=== PATIENT | female | born 1970 | race Hispanic/Latino ===

== ENCOUNTER 2018-07-10 19:19 | Emergency (ER) | payer BC, OTHER ==
[~2018-07-10] VITALS: Ht 154.9 cm; Wt 89.8 kg
[2018-07-10] MEDS ORDERED: CEFOXITIN SOD 1 GM in WATER STERILE 10ML VIAL 10 ML IV SCH (20:00)
[2018-07-10 20:24] LABS: BASOPHILS % 0.2 % (0.0-1.0); EOSINOPHILS % 0.3 % (0.0-6.0); HEMATOCRIT 41.3 % (34.2-44.1); HEMOGLOBIN 14.1 g/dL (12.0-16.0); LYMPHOCYTES % 50.8 % (18.0-39.1); MEAN CORPUSCULAR HEMOGLOBIN 31.1 pg (28-32); MEAN CORPUSCULAR HGB CONC 34.1 g/dL (31-35); MEAN CORPUSCULAR VOLUME 91.2 fL (81-99); MONOCYTES # (AUTO) 0.3 (0.2-0.8); MONOCYTES % 5.7 % (4.4-11.3); NEUTROPHILS # (AUTO) 2.6 (2.1-6.9); NEUTROPHILS % 42.8 % (38.7-80.0); PLATELET COUNT 199 x10e3/uL (140-360); RED BLOOD COUNT 4.53 x10e6/uL (3.6-5.1)
[2018-07-10 20:41] LABS: ALANINE AMINOTRANSFERASE 23 IU/L (0-55); ALBUMIN 3.9 g/dL (3.5-5.0); ALKALINE PHOSPHATASE 62 IU/L (40-150); AMYLASE 64 U/L (25-125); ANION GAP 16.1 mmol/L (8-16); BLOOD UREA NITROGEN 16 mg/dL (7-26); BUN/CREATININE RATIO 21 (6-25); CALCIUM 9.6 mg/dL (8.4-10.2); CARBON DIOXIDE 22 mmol/L (22-29); CHLORIDE 105 mmol/L (98-107); CREATININE, SERUM 0.78 mg/dL (0.57-1.11); EST GLOMERULAR FILTRATION RATE > 60 ML/MIN (60-); GLUCOSE 168 mg/dL (74-118); LIPASE 37 U/L (8-78); POTASSIUM 4.1 mmol/L (3.5-5.1); SODIUM 139 mmol/L (136-145)
[2018-07-10] MEDS ORDERED: MORPHINE SULFATE 2 MG/ML SYR IV STA (20:44)
[2018-07-10] MEDS ORDERED: ONDANSETRON HCL INJ 2 MG/ML VIAL IV STA (20:44)
[2018-07-10] MEDS ORDERED: SODIUM CHLORIDE 0.9% 1000ML 1,000 ML IV ONE (20:45)
[2018-07-10] MEDS ORDERED: IOPAMIDOL 370 MG/ML 200 ML INFUS..BTL INJ ONE (21:08)
[2018-07-10] MEDS ORDERED: SODIUM CHLORIDE 0.9% 50ML 50 ML ONE (21:08)
--- NOTE | 2018-07-10 21:48 | Diagnostic Imaging Report ---
EXAM: CT ABDOMEN/PELVIS W DATE: 07/10/2018 8:02 PM INDICATION: Right abdominal pain COMPARISON: None TECHNIQUE: The abdomen and pelvis were scanned using a multidetector helical scanner. Coronal and sagittal reformations were obtained. IV Contrast: 100 ml Isovue 300/370 FINDINGS: LOWER THORAX: No consolidations LIVER/BILIARY: Hepatic steatosis. No masses. No ductal dilatation. GALLBLADDER: Surgically absent SPLEEN: Unremarkable PANCREAS: Unremarkable ADRENALS: No nodules KIDNEYS: No suspicious renal masses. No hydronephrosis. GI TRACT: Postsurgical changes at the GE junction. No evidence of obstruction. Incidental colonic diverticula. Normal appendix. VESSELS: Mild atherosclerotic changes PERITONEUM/RETROPERITONEUM: No free air or fluid LYMPH NODES: No lymphadenopathy REPRODUCTIVE ORGANS/BLADDER: Hysterectomy. Otherwise unremarkable. SOFT TISSUES: Bilateral breast implants, partially imaged. BONES: Sclerotic bubbly lesion of the right proximal femur/greater trochanter. IMPRESSION: 1. No acute abnormality. 2. Hepatic steatosis. 3. 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 Recommend nonemergent follow up dedicated right hip radiographs to better assess. Signed by: Dr Bety Avila MD on 07/10/2018 9:45 PM
[2018-07-10 23:45] LABS: CLARITY,URINE CLEAR (CLEAR); COLOR,URINE YELLOW (YELLOW); LEUKOCYTE ESTERASE ,URINE NEGATIVE (NEGATIVE)
[2018-07-10 23:46] LABS: BACTERIA,URINE MODERATE /HPF; BILIRUBIN,URINE NEGATIVE (NEGATIVE); EPITHELIAL CELLS,URINE FEW /LPF; KETONES,URINE NEGATIVE (NEGATIVE); NITRITE,URINE NEGATIVE (NEGATIVE); PROTEIN,URINE DIPSTICK NEGATIVE (NEGATIVE); URINE UROBILINOGEN 0.2 mg/dL (0.2 - 1); WBC,URINE (MAN) 0-5 /HPF (0-5)
[2018-07-11 00:28] VITALS: BP 148/75
== END 2018-07-11 00:47 | disposition home or self-care (01) ==
LOC: ER 19:19
DX: R10.33 Periumbilical pain (principal); R19.7 Diarrhea, unspecified; I10 Essential (primary) hypertension; E11.9 Type 2 diabetes mellitus without complications; Z85.3 Personal history of malignant neoplasm of breast
CPT/HCPCS: 36415; 74177; 80053; 81001; 82150; 83690; 85025; 99284; J2270; J2405; J7030; Q9967

== ENCOUNTER → 2020-02-24 | Outpatient (CLI) | payer OTHER ==
--- NOTE | 2020-02-24 10:39 | Diagnostic Imaging Report ---
EXAMINATION: CHEST 2 VIEWS INDICATION: Cough COMPARISON: CT abdomen and pelvis 07/10/2018 FINDINGS: LINES/TUBES:None LUNGS:The lungs are well-inflated. No focal consolidation or pulmonary edema. PLEURA:No pleural effusion or pneumothorax. MEDIASTINUM:The cardiomediastinal silhouette appears normal in size and shape. BONES/SOFT TISSUES:No acute osseous injury. Surgical clips in the right breast. ABDOMEN:No free air under the diaphragm. Cholecystectomy. IMPRESSION: No focal pneumonia or pulmonary edema. Signed by: Brice Sellers MD on 02/24/2020 10:36 AM
== END ==
LOC: RAD 08:50
PROVIDERS: ATTEND Family Medicine
DX: R05 Cough (principal)
CPT/HCPCS: 71046

== ENCOUNTER → 2021-05-26 | Outpatient (CLI) | payer BC | LOC: RAD 11:47 | PROVIDERS: ATTEND Family Medicine | DX: R05 Cough (principal) | CPT/HCPCS: 71046 ==

== ENCOUNTER 2022-04-23 18:27 | Observation (INO) | payer SELFPAY ==
[~2022-04-23] VITALS: Ht 162.6 cm; Wt 89.8 kg
[2022-04-23] MEDS ORDERED: SODIUM CHLORIDE 0.9% 1000ML 1,000 ML IV ONE ×2 (18:45→19:30)
[2022-04-23] MEDS ORDERED: ACETAMINOPHEN 325 MG TAB PO ONE (19:15)
[2022-04-23] MEDS ORDERED: ACETAMINOPHEN 325 MG TAB ONE (19:16)
[2022-04-23 19:29] LABS: BASOPHILS % 0.5 % (0.0-1.0); EOSINOPHILS % 0.5 % (0.0-6.0); HEMATOCRIT 43.2 % (34.2-44.1); HEMOGLOBIN 14.8 g/dL (12.0-16.0); LYMPHOCYTES # (AUTO) 2.9 (1.0-3.2); LYMPHOCYTES % 48.3 % (18.0-39.1); MEAN CORPUSCULAR HEMOGLOBIN 31.6 pg (28-32); MEAN CORPUSCULAR HGB CONC 34.3 g/dL (31-35); MEAN CORPUSCULAR VOLUME 92.3 fL (81-99); MONOCYTES # (AUTO) 0.4 (0.2-0.8); MONOCYTES % 6.8 % (4.4-11.3); NEUTROPHILS # (AUTO) 2.6 (2.1-6.9); NEUTROPHILS % 43.7 % (38.7-80.0); PLATELET COUNT 192 x10e3/uL (140-360); RED BLOOD COUNT 4.68 x10e6/uL (3.6-5.1); RED CELL DISTRIBUTION WIDTH 11.4 % (11.7-14.4)
[2022-04-23 19:51] LABS: ALANINE AMINOTRANSFERASE 32 IU/L (0-55); ALBUMIN 3.8 g/dL (3.5-5.0); ALBUMIN/GLOBULIN RATIO 0.8 (0.8-2.0); ALKALINE PHOSPHATASE 105 IU/L (40-150); ANION GAP 22.1 mmol/L (8-16); BLOOD UREA NITROGEN 14 mg/dL (7-26); BUN/CREATININE RATIO 15 (6-25); CALCIUM 9.8 mg/dL (8.4-10.2); CARBON DIOXIDE 18 mmol/L (22-29); CHLORIDE 97 mmol/L (98-107); CREATININE, SERUM 0.93 mg/dL (0.57-1.11); POTASSIUM 4.1 mmol/L (3.5-5.1); SODIUM 133 mmol/L (136-145)
[2022-04-23 20:00] LABS: GLUCOSE 514 mg/dL (74-118)
[2022-04-23 20:10] LABS: CREATINE KINASE 56 IU/L (29-168)
[2022-04-23] MEDS ORDERED: MAGNESIUM SULF 1GRAM/DEXTROSE 100 ML IV PRN (20:30)
[2022-04-23] MEDS ORDERED: DEXTROSE 5%/0.45% SOD CHL 1,000 ML IV SCH (20:30)
[2022-04-23] MEDS ORDERED: POTASSIUM CHLORIDE 20MEQ/100ML 200 ML IV PRN (20:30)
[2022-04-23] MEDS ORDERED: SODIUM CHLORIDE 0.9% 1000ML 1,000 ML IV SCH (20:30)
[2022-04-23] MEDS ORDERED: INSULIN REGULAR, HUMAN 3ML VL 100 UNIT in SODIUM CHLORIDE 0.9% 100 ML IV SCH ×2 (20:30)
[2022-04-23] MEDS ORDERED: INSULIN REGULAR, HUMAN 100 UNIT/1 ML IV ONE (20:37)
[2022-04-23] MEDS ORDERED: INSULIN REGULAR, HUMAN 100 UNIT/1 ML SQ ONE (20:37)
[2022-04-23 21:14] LABS: CLARITY,URINE CLEAR (CLEAR); COLOR,URINE YELLOW (YELLOW); KETONES,URINE NEGATIVE (NEGATIVE); LEUKOCYTE ESTERASE ,URINE NEGATIVE (NEGATIVE); NITRITE,URINE NEGATIVE (NEGATIVE); PROTEIN,URINE DIPSTICK NEGATIVE (NEGATIVE); URINE UROBILINOGEN 0.2 mg/dL (0.2 - 1)
[2022-04-23 21:22] LABS: EPITHELIAL CELLS,URINE FEW /LPF; RBC,URINE 0-5 /HPF (0-5); WBC,URINE (MAN) 0-5 /HPF (0-5)
[2022-04-23 21:23] LABS: BACTERIA,URINE FEW /HPF
[2022-04-23] MEDS ORDERED: ONDANSETRON HCL INJ 2MG/ML 2ML 2 MG/ML VIAL ONE (21:42)
[2022-04-23 21:47] LABS: ANION GAP 14.8 mmol/L (8-16); CREATININE, SERUM 0.69 mg/dL (0.57-1.11); POTASSIUM 3.8 mmol/L (3.5-5.1)
[2022-04-23] MEDS ORDERED: DEXTROSE 50% SYRINGE 50 ML IV PRN (22:30)
[2022-04-23] MEDS ORDERED: ACETAMINOPHEN 325 MG TAB PO PRN (22:30)
[2022-04-23] MEDS ORDERED: ONDANSETRON HCL INJ 2MG/ML 2ML 2 MG/ML VIAL IV PRN (22:30)
[2022-04-23] MEDS: SODIUM CHLORIDE 0.9% 1000ML 1,000 ML IV SCH (22:34)
[2022-04-23 23:07] VITALS: BP 151/98
[2022-04-23] MEDS ORDERED: LISINOPRIL20 MG PO (23:36)
[2022-04-23] MEDS ORDERED: HUMALOG100 UNIT/1 SQ (23:36)
[2022-04-23] MEDS ORDERED: LANTUS 3ML100 UNITS/ SQ (23:38)
[2022-04-23] MEDS ORDERED: TRAZODONE HCL100 MG PO (23:38)
[2022-04-23 23:45] VITALS: BP 151/98
[2022-04-24] MEDS ORDERED: TRAZODONE HCL 50 MG TAB PO ONE
[2022-04-24 05:57] LABS: BASOPHILS % 0.4 % (0.0-1.0); EOSINOPHILS # (AUTO) 0.1 (0.0-0.4); EOSINOPHILS % 1.1 % (0.0-6.0); HEMATOCRIT 37.1 % (34.2-44.1); HEMOGLOBIN 12.4 g/dL (12.0-16.0); LYMPHOCYTES # (AUTO) 2.7 (1.0-3.2); LYMPHOCYTES % 59.4 % (18.0-39.1); MEAN CORPUSCULAR HEMOGLOBIN 31.2 pg (28-32); MEAN CORPUSCULAR HGB CONC 33.4 g/dL (31-35); MEAN CORPUSCULAR VOLUME 93.5 fL (81-99); MONOCYTES # (AUTO) 0.4 (0.2-0.8); NEUTROPHILS # (AUTO) 1.4 (2.1-6.9); NEUTROPHILS % 29.9 % (38.7-80.0); PLATELET COUNT 226 x10e3/uL (140-360); RED BLOOD COUNT 3.97 x10e6/uL (3.6-5.1); RED CELL DISTRIBUTION WIDTH 11.5 % (11.7-14.4)
[2022-04-24 06:28] LABS: ALBUMIN 3.3 g/dL (3.5-5.0); ALBUMIN/GLOBULIN RATIO 1.1 (0.8-2.0); ANION GAP 13.7 mmol/L (8-16); CALCIUM 8.3 mg/dL (8.4-10.2); CREATININE, SERUM 0.68 mg/dL (0.57-1.11); POTASSIUM 3.7 mmol/L (3.5-5.1)
[2022-04-24 07:04] LABS: CHOL/HDL RATIO 6.2 (3.0-3.6)
[2022-04-24 08:07] VITALS: BP 146/76
[2022-04-24 08:10] VITALS: BP 146/76
[2022-04-24] MEDS ORDERED: LISINOPRIL 20 MG TAB PO SCH (09:00)
[2022-04-24] MEDS: INSULIN REGULAR, HUMAN 100 UNIT/1 ML SQ SCH ×3 (09:25→16:16)
[2022-04-24] MEDS: SODIUM CHLORIDE 0.9% 1000ML 1,000 ML IV SCH ×2 (09:29→14:55)
[2022-04-24 11:55] VITALS: BP 137/78
[2022-04-24 16:14] VITALS: BP 134/74
[2022-04-24] MEDS ORDERED: ONDANSETRON ODT4 MG PO (19:05)
[2022-04-24] MEDS ORDERED: CEPHALEXIN500 MG PO (19:05)
[2022-04-24] MEDS ORDERED: ONDANSETRON HCL 4 MG ORAL DISINTEGRATING TAB PO PRN (19:30)
[2022-04-24] MEDS ORDERED: TRAZODONE HCL 50 MG TAB PO SCH (21:00)
== END 2022-04-24 21:10 | disposition home or self-care (01) ==
LOC: ER 18:39 → ERHOLD 22:18 → MED/SURG2 23:09
PROVIDERS: ADMIT Internal Medicine; ATTEND Internal Medicine
DX: E86.0 Dehydration (principal); I10 Essential (primary) hypertension; E87.2 Acidosis; E11.65 Type 2 diabetes mellitus with hyperglycemia; E87.8 Other disorders of electrolyte and fluid balance, not elsewhere classified; E66.9 Obesity, unspecified; Z68.37 Body mass index [BMI] 37.0-37.9, adult; Z85.3 Personal history of malignant neoplasm of breast; Z20.822 Contact with and (suspected) exposure to COVID-19; Z79.4 Long term (current) use of insulin
CPT/HCPCS: 36415 ×2; 71045; 80048; 80053 ×2; 80061; 81001; 82550; 82553; 82948 ×2; 83036; 83605; 83690; 83735; 84484; 85025 ×2; 87040; 93005; 94799; 99284; G0378 ×2; J0696 ×2; J1817; J2405; J7030 ×2; U0002

== ENCOUNTER 2022-08-05 02:21 | Emergency (ER) | payer BC ==
[~2022-08-05] VITALS: Ht 162.6 cm; Wt 86.2 kg
[~2022-08-05 02:21] MED LIST: CEPHALEXIN500 MG PO; HUMALOG100 UNIT/1 SQ; LANTUS 3ML100 UNITS/ SQ; LISINOPRIL20 MG PO; ONDANSETRON ODT4 MG PO; TRAZODONE HCL100 MG PO
[2022-08-05] MEDS ORDERED: SODIUM CHLORIDE 0.9% 1000ML 1,000 ML IV STA (02:47)
[2022-08-05] MEDS ORDERED: ONDANSETRON HCL INJ 2MG/ML 2ML 2 MG/ML VIAL IV STA ×2 (02:47→03:39)
[2022-08-05] MEDS ORDERED: FAMOTIDINE 20 MG/2 ML VIAL IV STA (02:47)
[2022-08-05 03:05] LABS: BASOPHILS % 0.6 % (0.0-1.0); EOSINOPHILS % 0.8 % (0.0-6.0); HEMATOCRIT 42.6 % (34.2-44.1); HEMOGLOBIN 14.2 g/dL (12.0-16.0); LYMPHOCYTES # (AUTO) 2.6 (1.0-3.2); LYMPHOCYTES % 54.9 % (18.0-39.1); MEAN CORPUSCULAR HEMOGLOBIN 30.7 pg (28-32); MEAN CORPUSCULAR HGB CONC 33.3 g/dL (31-35); MEAN CORPUSCULAR VOLUME 92.2 fL (81-99); MONOCYTES # (AUTO) 0.4 (0.2-0.8); MONOCYTES % 7.3 % (4.4-11.3); NEUTROPHILS # (AUTO) 1.7 (2.1-6.9); NEUTROPHILS % 36.2 % (38.7-80.0); PLATELET COUNT 243 x10e3/uL (140-360); RED BLOOD COUNT 4.62 x10e6/uL (3.6-5.1); RED CELL DISTRIBUTION WIDTH 11.2 % (11.7-14.4)
[2022-08-05 03:15] LABS: CLARITY,URINE CLEAR (CLEAR); COLOR,URINE YELLOW (YELLOW); KETONES,URINE NEGATIVE (NEGATIVE); LEUKOCYTE ESTERASE ,URINE NEGATIVE (NEGATIVE); NITRITE,URINE NEGATIVE (NEGATIVE); PROTEIN,URINE DIPSTICK NEGATIVE (NEGATIVE); URINE UROBILINOGEN 0.2 mg/dL (0.2 - 1)
[2022-08-05 03:22] LABS: ALBUMIN/GLOBULIN RATIO 1.1 (0.8-2.0); ANION GAP 21.1 mmol/L (8-16); CALCIUM 8.8 mg/dL (8.4-10.2); CREATINE KINASE 71 IU/L (29-168); CREATININE, SERUM 0.79 mg/dL (0.57-1.11); POTASSIUM 4.1 mmol/L (3.5-5.1)
[2022-08-05 03:25] LABS: BACTERIA,URINE MANY /HPF; EPITHELIAL CELLS,URINE MODERATE /LPF; RBC,URINE 0-5 /HPF (0-5); WBC,URINE (MAN) 0-5 /HPF (0-5)
[2022-08-05] MEDS ORDERED: Morphine 4mg INJECTION 4 MG/ML INJ IV STA (03:39)
[2022-08-05] MEDS ORDERED: INSULIN REGULAR, HUMAN 100 UNIT/1 ML IV STA (03:39)
[2022-08-05] MEDS ORDERED: INSULIN REGULAR, HUMAN 100 UNIT/1 ML IV ONE (04:00)
[2022-08-05 04:01] LABS: ABG HCO3 21 mmol/L (22-26); ABG PCO2 38 mmHg (35-45); ABG PH 7.36 (7.35-7.45); ABG PO2 128 mmHg (80-105); ABG TCO2 22
[2022-08-05 04:56] VITALS: BP 140/72
[2022-08-05] MEDS ORDERED: IOPAMIDOL 370 MG/ML 100 ML INFUS..BTL INJ ONE (05:43)
== END 2022-08-05 05:01 | disposition home or self-care (01) ==
LOC: ER 02:28
DX: R10.13 Epigastric pain (principal); R11.2 Nausea with vomiting, unspecified; E11.65 Type 2 diabetes mellitus with hyperglycemia; I10 Essential (primary) hypertension; R94.31 Abnormal electrocardiogram [ECG] [EKG]; Z85.3 Personal history of malignant neoplasm of breast; Z85.43 Personal history of malignant neoplasm of ovary
CPT/HCPCS: 36415; 36600; 74177; 80053; 81001; 82550; 82553; 82805; 82948; 83690; 84484; 85025; 93005; 99284; J1817; J2270; J2405; J7030; Q9967

== ENCOUNTER 2022-09-05 11:45 | Observation (INO) | payer BC ==
[~2022-09-05] VITALS: Ht 162.6 cm; Wt 86.0 kg
[2022-09-05] MEDS ORDERED: SODIUM CHLORIDE FLUSH 10 ML SYR IV PRN (12:00)
[2022-09-05] MEDS ORDERED: ASPIRIN 81 MG CHEW TAB PO ONE ×2 (12:00→13:45)
[2022-09-05 12:12] LABS: BASOPHILS % 0.7 % (0.0-1.0); EOSINOPHILS % 0.7 % (0.0-6.0); HEMATOCRIT 45.7 % (34.2-44.1); HEMOGLOBIN 14.7 g/dL (12.0-16.0); LYMPHOCYTES # (AUTO) 1.7 (1.0-3.2); LYMPHOCYTES % 39.3 % (18.0-39.1); MEAN CORPUSCULAR HEMOGLOBIN 30.4 pg (28-32); MEAN CORPUSCULAR HGB CONC 32.2 g/dL (31-35); MEAN CORPUSCULAR VOLUME 94.4 fL (81-99); MONOCYTES # (AUTO) 0.2 (0.2-0.8); NEUTROPHILS # (AUTO) 2.4 (2.1-6.9); NEUTROPHILS % 54.1 % (38.7-80.0); PLATELET COUNT 263 x10e3/uL (140-360); RED BLOOD COUNT 4.84 x10e6/uL (3.6-5.1); RED CELL DISTRIBUTION WIDTH 11.5 % (11.7-14.4)
[2022-09-05 13:17] LABS: ALANINE AMINOTRANSFERASE 31 IU/L (0-55); ALBUMIN 4.3 g/dL (3.5-5.0); ALKALINE PHOSPHATASE 102 IU/L (40-150); ANION GAP 19.7 mmol/L (8-16); BLOOD UREA NITROGEN 12 mg/dL (7-26); BUN/CREATININE RATIO 15 (6-25); CALCIUM 9.4 mg/dL (8.4-10.2); CARBON DIOXIDE 21 mmol/L (22-29); CHLORIDE 103 mmol/L (98-107); CREATININE, SERUM 0.82 mg/dL (0.57-1.11); POTASSIUM 3.7 mmol/L (3.5-5.1); SODIUM 140 mmol/L (136-145)
[2022-09-05 13:23] LABS: GLUCOSE 406 mg/dL (74-118)
[2022-09-05] MEDS ORDERED: INSULIN REGULAR, HUMAN 100 UNIT/1 ML IV ONE (13:30)
[2022-09-05] MEDS ORDERED: SODIUM CHLORIDE 0.9% 1000ML 1,000 ML IV ONE (13:30)
[2022-09-05] MEDS ORDERED: ACETAMINOPHEN 325 MG TAB PO ONE (13:45)
[2022-09-05] MEDS ORDERED: SODIUM CHLORIDE FLUSH 10 ML SYR INJ PRN (13:45)
[2022-09-05 14:38] LABS: CREATINE KINASE 86 IU/L (29-168)
[2022-09-05] MEDS ORDERED: ACETAMINOPHEN 325 MG TAB PO PRN (14:45)
[2022-09-05 15:00] VITALS: BP 170/96
[2022-09-05] MEDS ORDERED: CLONIDINE HCL 0.1 MG TAB PO PRN (15:00)
[2022-09-05 16:21] VITALS: BP 170/96
[2022-09-05] MEDS: INSULIN GLARGINE 100 UNITS/ML VIAL SQ SCH (16:31)
[2022-09-05] MEDS: INSULIN LISPRO 100 UNIT/1 ML 3ML VIAL SQ SCH ×2 (16:31→22:05)
[2022-09-05] MEDS: ACETAMINOPHEN/CODEINE 300MG - 30MG TAB PO PRN ×2 (16:42→21:36)
[2022-09-05] MEDS ORDERED: CARVEDILOL 3.125 MG TAB PO SCH (17:00)
[2022-09-05] MEDS: ONDANSETRON HCL INJ 2MG/ML 2ML 2 MG/ML VIAL IV PRN ×2 (18:26→22:40)
[2022-09-05] MEDS: Morphine 2mg Syringe 2 MG/ML SYR IV PRN ×2 (18:26→22:40)
[2022-09-05 20:00] VITALS: BP 166/96
[2022-09-05] MEDS ORDERED: IOPAMIDOL 370 MG/ML 100 ML INFUS..BTL INJ ONE (20:34)
[2022-09-05 21:00] VITALS: BP 166/96
[2022-09-05] MEDS ORDERED: TRAZODONE HCL 50 MG TAB PO PRN (21:15)
[2022-09-06] VITALS: BP 123/71
[2022-09-06] MEDS: ONDANSETRON HCL INJ 2MG/ML 2ML 2 MG/ML VIAL IV PRN ×2 (03:44→08:12)
[2022-09-06] MEDS: Morphine 2mg Syringe 2 MG/ML SYR IV PRN ×2 (03:45→08:12)
[2022-09-06 04:00] VITALS: BP 100/62
[2022-09-06 06:01] LABS: BASOPHILS % 0.5 % (0.0-1.0); EOSINOPHILS # (AUTO) 0.1 (0.0-0.4); EOSINOPHILS % 1.9 % (0.0-6.0); HEMATOCRIT 37.1 % (34.2-44.1); HEMOGLOBIN 12.1 g/dL (12.0-16.0); LYMPHOCYTES # (AUTO) 2.4 (1.0-3.2); LYMPHOCYTES % 56.4 % (18.0-39.1); MEAN CORPUSCULAR HEMOGLOBIN 30.7 pg (28-32); MEAN CORPUSCULAR HGB CONC 32.6 g/dL (31-35); MEAN CORPUSCULAR VOLUME 94.2 fL (81-99); MONOCYTES # (AUTO) 0.3 (0.2-0.8); MONOCYTES % 7.1 % (4.4-11.3); NEUTROPHILS # (AUTO) 1.4 (2.1-6.9); NEUTROPHILS % 33.9 % (38.7-80.0); PLATELET COUNT 215 x10e3/uL (140-360); RED BLOOD COUNT 3.94 x10e6/uL (3.6-5.1); RED CELL DISTRIBUTION WIDTH 11.5 % (11.7-14.4)
[2022-09-06 06:23] LABS: ANION GAP 13.5 mmol/L (8-16); CALCIUM 8.1 mg/dL (8.4-10.2); CHOL/HDL RATIO 5.3 (3.0-3.6); CREATININE, SERUM 0.62 mg/dL (0.57-1.11); POTASSIUM 3.5 mmol/L (3.5-5.1)
[2022-09-06 06:41] LABS: CREATINE KINASE 56 IU/L (29-168)
[2022-09-06 08:00] VITALS: BP 114/79
[2022-09-06] MEDS: CARVEDILOL 3.125 MG TAB PO SCH ×2 (08:14→16:22)
[2022-09-06 08:20] VITALS: BP 114/79
[2022-09-06] MEDS: INSULIN LISPRO 100 UNIT/1 ML 3ML VIAL SQ SCH ×3 (08:47→16:29)
[2022-09-06] MEDS: INSULIN GLARGINE 100 UNITS/ML VIAL SQ SCH (08:48)
[2022-09-06] MEDS ORDERED: ASPIRIN 325 MG TAB EC PO SCH (09:00)
[2022-09-06] MEDS ORDERED: LISINOPRIL 20 MG TAB PO SCH (09:00)
[2022-09-06] MEDS ORDERED: COREG3.125 MG PO (10:25)
[2022-09-06] MEDS ORDERED: ACETAMIN/BUTALBITAL/CAFFEINE TAB PO ONE (11:00)
[2022-09-06 11:52] VITALS: BP 109/59
[2022-09-06 15:07] LABS: CREATINE KINASE 62 IU/L (29-168)
[2022-09-06 16:11] VITALS: BP 149/71
== END 2022-09-06 19:05 | disposition home or self-care (01) ==
LOC: ER 11:47 → ERHOLD 13:39 → MED/SURG2 14:48
PROVIDERS: ADMIT Internal Medicine; ATTEND Internal Medicine
DX: R07.89 Other chest pain (principal); R55 Syncope and collapse; E11.65 Type 2 diabetes mellitus with hyperglycemia; I10 Essential (primary) hypertension; E66.09 Other obesity due to excess calories; Z68.32 Body mass index [BMI] 32.0-32.9, adult
CPT/HCPCS: 36415 ×2; 70450; 71045; 71260; 72125; 73502; 80048; 80053; 80061; 82550 ×2; 82553 ×2; 82948 ×2; 83036; 84484 ×2; 85025 ×2; 85379; 93005 ×2; 99284; G0378 ×2; J1815; J1817; J2270 ×2; J2405 ×2; J7030; Q9967; U0002

== ENCOUNTER 2023-05-20 14:58 | Emergency (ER) | payer BC ==
[~2023-05-20] VITALS: Ht 162.6 cm; Wt 85.7 kg
[~2023-05-20 14:58] MED LIST changes: +AZITHROMYCIN250 MG PO; +COREG3.125 MG PO; +DICYCLOMINE HCL20 MG PO
[2023-05-20] MEDS ORDERED: Morphine 4mg INJECTION 4 MG/ML INJ IV PRN (15:30)
[2023-05-20] MEDS ORDERED: ONDANSETRON HCL INJ 2MG/ML 2ML 2 MG/ML VIAL IV PRN (15:30)
[2023-05-20 15:49] LABS: BASOPHILS % 0.5 % (0.0-1.0); EOSINOPHILS % 0.5 % (0.0-6.0); HEMATOCRIT 39.1 % (34.2-44.1); HEMOGLOBIN 13.3 g/dL (12.0-16.0); LYMPHOCYTES # (AUTO) 2.7 (1.0-3.2); LYMPHOCYTES % 42.8 % (18.0-39.1); MEAN CORPUSCULAR HEMOGLOBIN 30.6 pg (28-32); MEAN CORPUSCULAR VOLUME 90.1 fL (81-99); MONOCYTES # (AUTO) 0.3 (0.2-0.8); MONOCYTES % 4.3 % (4.4-11.3); NEUTROPHILS # (AUTO) 3.2 (2.1-6.9); NEUTROPHILS % 51.7 % (38.7-80.0); PLATELET COUNT 255 x10e3/uL (140-360); RED BLOOD COUNT 4.34 x10e6/uL (3.6-5.1); RED CELL DISTRIBUTION WIDTH 11.5 % (11.7-14.4)
[2023-05-20 16:03] LABS: ANION GAP 12.6 mmol/L (8-16); CREATININE, SERUM 0.76 mg/dL (0.57-1.11); POTASSIUM 3.6 mmol/L (3.5-5.1)
[2023-05-20 16:04] LABS: ALBUMIN 3.7 g/dL (3.5-5.0); CALCIUM 9.2 mg/dL (8.4-10.2)
[2023-05-20 16:07] LABS: CLARITY,URINE SL CLOUDY (CLEAR); COLOR,URINE YELLOW (YELLOW); LEUKOCYTE ESTERASE ,URINE NEGATIVE (NEGATIVE); NITRITE,URINE NEGATIVE (NEGATIVE)
[2023-05-20 16:08] LABS: KETONES,URINE NEGATIVE (NEGATIVE); PROTEIN,URINE DIPSTICK NEGATIVE (NEGATIVE); URINE UROBILINOGEN 0.2 mg/dL (0.2 - 1)
[2023-05-20 16:14] LABS: LIPASE 36 U/L (8-78)
[2023-05-20 16:19] LABS: BACTERIA,URINE MODERATE /HPF; EPITHELIAL CELLS,URINE MODERATE /LPF; RBC,URINE 0-5 /HPF (0-5); WBC,URINE (MAN) 0-5 /HPF (0-5)
[2023-05-20] MEDS ORDERED: FENTANYL CITRATE/PF 100MCG/2 ML INJ IV ONE (17:00)
[2023-05-20] MEDS ORDERED: IOPAMIDOL 370 MG/ML 100 ML INFUS..BTL INJ ONE (17:02)
[2023-05-20] MEDS ORDERED: PEPCID20 MG PO (17:53)
[2023-05-20] MEDS ORDERED: CARAFATE1 GM/10 ML PO ×2 (17:53→18:19)
[2023-05-20] MEDS ORDERED: ONDANSETRON ODT4 MG PO (17:53)
[2023-05-20] MEDS ORDERED: DICYCLOMINE HCL20 MG PO (17:53)
[2023-05-20] MEDS ORDERED: DONNATAL/LIDOCAINE/MAALOX 30 ML SUSP PO ONE (18:00)
[2023-05-20] MEDS ORDERED: FAMOTIDINE 20 MG TAB PO ONE (18:00)
[2023-05-20] MEDS ORDERED: ONDANSETRON HCL INJ 2MG/ML 2ML 2 MG/ML VIAL IV STA (18:37)
[2023-05-20 19:15] VITALS: BP 145/93; PULSE 71; RESP 19; TEMP 98.7; O2SAT 99
== END 2023-05-20 19:12 | disposition home or self-care (01) ==
LOC: ER 15:00
DX: K29.70 Gastritis, unspecified, without bleeding (principal); I10 Essential (primary) hypertension; E11.9 Type 2 diabetes mellitus without complications; Z85.3 Personal history of malignant neoplasm of breast; Z85.43 Personal history of malignant neoplasm of ovary; Z79.899 Other long term (current) drug therapy; Z90.49 Acquired absence of other specified parts of digestive tract; Z79.4 Long term (current) use of insulin
CPT/HCPCS: 36415; 74177; 80053; 81001; 83690; 84484; 85025; 93005; 99284; J2270; J2405; J3010; Q9967

== ENCOUNTER 2025-05-22 22:10 | Observation (INO) | payer BC ==
[~2025-05-22] VITALS: Ht 162.6 cm; Wt 64.9 kg
[~2025-05-22 22:10] MED LIST changes: +CARAFATE1 GM/10 ML PO; +LANTUS 3ML100 UNITS/ SC; +LEVEMIR100 UNIT/1 SC; +NOVOLOG MI100 UNIT/1 SC; +OZEMPIC1 MG/0.71 SC; +PEPCID20 MG PO; +SYNJARDY 12.5-1 EACH PO
[2025-05-22 22:30] VITALS: TEMP 98.5
[2025-05-22] MEDS: SODIUM CHLORIDE 0.9% 1000ML 1,000 ML IV ONE (23:16)
[2025-05-22] MEDS: ONDANSETRON HCL INJ 2MG/ML 2ML 2 MG/ML VIAL IV STA (23:16)
[2025-05-22] MEDS: Morphine 4mg INJECTION 4 MG/ML INJ IV ONE (23:16)
[2025-05-22 23:19] LABS: EST GLOMERULAR FILTRATION RATE 77.0 ML/MIN (>=60)
[2025-05-22 23:20] LABS: PHOSPHORUS 5.2 MG/DL (2.3-4.7)
[2025-05-22 23:24] LABS: BASOPHILS % 0.3 % (0.0-1.0); EOSINOPHILS % 0.3 % (0.0-6.0); LYMPHOCYTES % 35.9 % (18.0-39.1); MONOCYTES % 5.8 % (4.4-11.3); NEUTROPHILS % 57.6 % (38.7-80.0); RED CELL DISTRIBUTION WIDTH 13.1 % (11.7-14.4)
[2025-05-22] MEDS ORDERED: IOPAMIDOL 370 MG/ML 100 ML INFUS..BTL INJ ONE (23:53)
[2025-05-23] VITALS (11 sets, daily range): BP systolic 106–150; BP diastolic 57–82; PULSE 55–94; RESP 18; TEMP 97.3–98.1; O2SAT 99–100
[2025-05-23] MEDS: Morphine 2mg Syringe 2 MG/ML SYR IV PRN (01:30)
[2025-05-23 02:14] LABS: LEUKOCYTE ESTERASE ,URINE NEGATIVE (NEGATIVE); PROTEIN,URINE DIPSTICK NEGATIVE (NEGATIVE); URINE UROBILINOGEN 0.2 mg/dL (0.2 - 1)
[2025-05-23 02:15] LABS: EPITHELIAL CELLS,URINE FEW /LPF; WBC,URINE (MAN) 0-5 /HPF (0-5)
[2025-05-23] MEDS: HYDROMORPHONE 1MG/1ML INJ IV STA (02:55)
[2025-05-23] MEDS: SODIUM CHLORIDE 0.9% 1000ML 1,000 ML IV SCH (03:20)
[2025-05-23] MEDS ORDERED: SYNJARDY XR 101 EACH PO (07:00)
[2025-05-23] MEDS ORDERED: LIPITOR20 MG PO (07:00)
[2025-05-23] MEDS ORDERED: LOSARTAN POTAS100 MG PO (07:00)
[2025-05-23] MEDS ORDERED: MOUNJARO10 MG/0.5 (07:00)
[2025-05-23] MEDS ORDERED: MOUNJARO10 MG/0.5 SQ (07:00)
[2025-05-23] MEDS ORDERED: FIASP 100100 UNIT/1 SQ (07:00)
[2025-05-23] MEDS ORDERED: OMEPRAZOLE40 MG PO (07:00)
[2025-05-23] MEDS: ONDANSETRON HCL INJ 2MG/ML 2ML 2 MG/ML VIAL IV PRN (08:15)
[2025-05-23] MEDS: HYDROMORPHONE 1MG/1ML INJ IV PRN (12:36)
[2025-05-23] MEDS ORDERED: DEXTROSE 5%/0.9% SOD CHL 1,000 ML IV SCH (14:30)
[2025-05-23] MEDS ORDERED: HYDRALAZINE HCL 20 MG/ML VIAL IV PRN (14:45)
[2025-05-23] MEDS: LACTATED RINGER'S 1,000 ML INJ SCH (15:58)
[2025-05-23] MEDS: METOPROLOL TARTRATE INJ 1 MG/ML VIAL IV SCH (22:12)
[2025-05-24 03:04] VITALS: BP 124/56; PULSE 61; RESP 18; TEMP 97.6; O2SAT 100
[2025-05-24 05:51] LABS: BASOPHILS % 0.2 % (0.0-1.0); EOSINOPHILS % 0.6 % (0.0-6.0); LYMPHOCYTES % 38.0 % (18.0-39.1); MONOCYTES % 5.5 % (4.4-11.3); NEUTROPHILS % 55.3 % (38.7-80.0); RED CELL DISTRIBUTION WIDTH 13.0 % (11.7-14.4)
[2025-05-24 06:25] LABS: EST GLOMERULAR FILTRATION RATE 104.0 ML/MIN (>=60)
[2025-05-24 07:34] VITALS: BP 129/68; PULSE 72; RESP 18; TEMP 97.9; O2SAT 100
[2025-05-24 08:15] VITALS: BP 129/68; PULSE 72; RESP 18; TEMP 97.9; O2SAT 100
[2025-05-24 11:20] VITALS: BP 139/67; PULSE 69; RESP 18; TEMP 98.4; O2SAT 100
[2025-05-25] MEDS ORDERED: METOPROLOL TARTRATE 25 MG TAB PO SCH (09:00)
== END 2025-05-24 14:50 | disposition home or self-care (01) ==
LOC: ER 22:14 → ERHOLD 05-23 01:10 → MED/SURG2 05-23 02:03
PROVIDERS: ADMIT Internal Medicine; ATTEND Internal Medicine
DX: K56.7 Ileus, unspecified (principal); E11.65 Type 2 diabetes mellitus with hyperglycemia; I49.3 Ventricular premature depolarization; R00.8 Other abnormalities of heart beat; Z85.3 Personal history of malignant neoplasm of breast; I10 Essential (primary) hypertension; Z79.85 Long-term (current) use of injectable non-insulin antidiabetic drugs; Z79.4 Long term (current) use of insulin
CPT/HCPCS: 36415; 74177; 80053; 81001; 82948; 83690; 83735; 84100; 84484; 85025; 93005; 93306; 99284; G0378; J1171; J2270; J2405; J2470; J7030; Q9967

== ENCOUNTER 2025-06-12 22:18 | Emergency (ER) | payer BC ==
[~2025-06-12] VITALS: Ht 162.6 cm; Wt 64.9 kg
[~2025-06-12 22:18] MED LIST changes: +FIASP 100100 UNIT/1 SQ; +LIPITOR20 MG PO; +LOSARTAN POTAS100 MG PO; +MOUNJARO10 MG/0.5; +MOUNJARO10 MG/0.5 SQ; +NOVOLOG100 UNIT/1 SC; +OMEPRAZOLE40 MG PO; +SYNJARDY XR 101 EACH PO; +TRESIBA100 UNIT/1 SC; +VITAMIN B-121000 MC2 INJ
[2025-06-12 22:25] VITALS: TEMP 98.2
[2025-06-12] MEDS: KETOROLAC TROMETHAMINE 30 MG/ML VIAL IV STA (22:45)
[2025-06-12] MEDS: ONDANSETRON HCL INJ 2MG/ML 2ML 2 MG/ML VIAL IV STA (22:45)
[2025-06-12 23:00] LABS: BASOPHILS % 0.3 % (0.0-1.0); EOSINOPHILS % 1.1 % (0.0-6.0); LYMPHOCYTES % 49.2 % (18.0-39.1); MONOCYTES % 6.6 % (4.4-11.3); NEUTROPHILS % 42.7 % (38.7-80.0); RED CELL DISTRIBUTION WIDTH 12.5 % (11.7-14.4)
[2025-06-12 23:14] LABS: EPITHELIAL CELLS,URINE MODERATE /LPF; WBC,URINE (MAN) 21-50 /HPF (0-5)
[2025-06-12 23:17] LABS: LEUKOCYTE ESTERASE ,URINE 1+ (NEGATIVE); PROTEIN,URINE DIPSTICK NEGATIVE (NEGATIVE)
[2025-06-12 23:18] LABS: URINE UROBILINOGEN 0.2 mg/dL (0.2 - 1)
[2025-06-12 23:19] LABS: EST GLOMERULAR FILTRATION RATE 82.0 ML/MIN (>=60)
[2025-06-12] MEDS ORDERED: IOPAMIDOL 370 MG/ML 100 ML INFUS..BTL INJ ONE (23:32)
[2025-06-13 00:03] VITALS: PULSE 88; RESP 12
[2025-06-13 00:12] VITALS: BP 152/81; PULSE 89; RESP 16; TEMP 98.4; O2SAT 98
[2025-06-13] MEDS ORDERED: CEFDINIR300 MG PO (00:12)
[2025-06-13] MEDS ORDERED: PYRIDIUM200 MG PO (00:12)
== END 2025-06-13 00:20 | disposition home or self-care (01) ==
LOC: ER 22:30
DX: R10.31 Right lower quadrant pain (principal); N39.0 Urinary tract infection, site not specified; I10 Essential (primary) hypertension; E11.9 Type 2 diabetes mellitus without complications; R94.31 Abnormal electrocardiogram [ECG] [EKG]
CPT/HCPCS: 36415; 74177; 80053; 81001; 83690; 85025; 93005; 99284; J1885; J2405; Q9967